=== PATIENT | male | born 1955 | race Caucasian/White ===

== ENCOUNTER → 2019-03-27 | Outpatient (CLI) | payer OTHER ==
[~2019-03-27] MED LIST: CONTRAST GIVEN. MC PRN; IOHEXOL 300 MG/ML 100ML VIAL. IV ONE
[2019-03-27 09:15] LABS: CREATININE 0.8 mg/dL (0.7-1.3); GFR 98.3
--- NOTE | 2019-03-27 09:59 | RAD ---
EXAM: CT Chest with IV contrast CLINICAL HISTORY: COPD. COMPARISON: Chest radiograph 06/05/2008 TECHNIQUE: CT of the chest following the administration of intravenous contrast. Axial, coronal and sagittal reformatted images were generated. ---PQRS compliance statement - One or more of the following individualized dose reduction techniques were utilized for this study: 1. Automated exposure control 2. Adjustment of the mA and/or kV according to patient size 3. Use of iterative reconstruction technique--- FINDINGS: CHEST: Heart is not enlarged. No pericardial effusion. Coronary artery calcifications are seen. Visualized portion of the thyroid is grossly unremarkable. A few prominent mediastinal and hilar lymph nodes are seen, not enlarged by size criteria. No axillary lymphadenopathy. No pleural effusion or pneumothorax. Bilateral emphysematous changes are seen. A 5 mm middle lobe lung nodule (series 2 image 35) is seen. Subpleural linear reticular opacities in the medial right lower lobe likely scarring/atelectasis. Visualized Upper abdomen: Hyperenhancing focus within the right hepatic lobe, nonspecific possibly hemangioma, measuring 1.4 cm. Lipoma is seen within a segment of small bowel. Bones: Old/healed right rib fractures are seen. Mild wedging deformity of several midlower thoracic vertebral bodies, likely age-indeterminate compression fractures versus physiologic wedging. IMPRESSION: 1. 5 mm middle lobe lung nodule is seen. Recommend follow-up CT in one year 2. Bilateral emphysematous changes are seen. No thoracic lymphadenopathy. 3. Hyperenhancing 1.4 cm lesion within the right hepatic lobe, nonspecific and may represent a hemangioma. However primary hepatic lesion or metastasis is not entirely excluded and therefore comparison to prior imaging if available or further evaluation with MRI in a high risk patient is recommended as this may not be seen by ultrasound given location. Electronically signed by: Jez Villanueva MD (03/27/2019 9:56 AM) [id number]
== END | disposition home or self-care (01) ==
LOC: CT 08:13
PROVIDERS: ATTEND Family Medicine
DX: J43.9 Emphysema, unspecified (principal); R91.1 Solitary pulmonary nodule; R91.8 Other nonspecific abnormal finding of lung field; I25.10 Atherosclerotic heart disease of native coronary artery without angina pectoris; K76.89 Other specified diseases of liver; M43.8X4 Other specified deforming dorsopathies, thoracic region
CPT/HCPCS: 36415; 71260; 82565; 84520; Q9967

== ENCOUNTER → 2020-05-01 | Outpatient (CLI) | payer OTHER ==
--- NOTE | 2020-05-01 08:59 | RAD ---
CT CHEST W/CONTRAST Indication: Lung nodule Technique: Postcontrast CT imaging was performed of the chest, multiplanar reconstruction images submitted. One or more of the following individualized dose reduction techniques were utilized for this examination: 1. Automated exposure control 2. Adjustment of the mA and/or kV according to patient size 3. Use of iterative reconstruction technique. Comparison: March 27, 2019 Findings: 5 mm right middle lobe nodule image 35 series 2 is unchanged. There is moderate emphysema with upper zone predominance. There is no new pleural or pericardial fluid, pneumothorax, or infiltrate. The major airways are overall patent. Thoracic aortic caliber is within normal limits, scattered mild plaque. Small focus of hyperenhancement of the superior liver image 48 series 2 about 7 mm is stable to somewhat less apparent, may be early filling hemangioma. There are some subcentimeter mediastinal nodes, largest about 7 mm in subcarinal region overall stable. There are also some subcentimeter right hilar nodes, no significantly enlarged nodes identified. There is again multilevel compression deformity of inferior thoracic vertebral bodies overall similar in appearance. There is multilevel degenerative change associated with the costovertebral articulations. There may be hepatic steatosis. IMPRESSION: 1. Small right middle lobe nodule is unchanged, no new suspicious pulmonary nodularity. If there are increased risk factors for neoplasm such as significant smoking history, continued surveillance such as with lung screening may be clinically indicated. 2. There is again emphysema. 3. There is again multilevel compression deformity of inferior thoracic vertebral bodies. Electronically signed by: Benjamin Meneses MD (05/01/2020 8:56 AM) [id number]
== END ==
LOC: CT 07:03
PROVIDERS: ATTEND Family Medicine
DX: R91.1 Solitary pulmonary nodule (principal); J43.9 Emphysema, unspecified; G95.29 Other cord compression; M43.8X4 Other specified deforming dorsopathies, thoracic region
CPT/HCPCS: 71260; Q9967

== ENCOUNTER → 2020-12-09 | Outpatient (CLI) | payer OTHER ==
[~2020-12-09] MED LIST changes: -CONTRAST GIVEN. MC PRN; +FEXO180T81 PO; +FLUT16SP NS; +FLUT1DIS3 IH; -IOHEXOL 300 MG/ML 100ML VIAL. IV ONE; +IPRA0.2S5 NEB; +ISOS30TA68 PO; +LOSA-73 PO; +METF-658 PO; +SIMV40TA18 PO; +VENTOLIN HFA18 GM INH
--- NOTE | 2020-12-10 11:09 | RAD ---
EXAM: Lower extremity arterial Doppler sonogram with ankle-brachial indices (SHAAN). HISTORY: Leg cramps TECHNIQUE: Doppler sonographic evaluation of the lower extremities was performed and pressure reading s were assessed. FINDINGS: Right brachial pressure: 143 mmHg Left brachial pressure: 133 mmHg Right ankle pressure (dorsalis pedis): 168 mmHg Right SHAAN (dorsalis pedis): 1.2 Left ankle pressure (dorsalis pedis): 184 mmHg Left SHAAN (dorsalis pedis): 1.4 Right ankle pressure (posterior tibial): 153 mmHg Right SHAAN (posterior tibial): 1.1 Left ankle pressure (posterior tibial): 173 mmHg Left SHAAN (posterior tibial): 1.3 IMPRESSION: Normal bilateral ABIs. Electronically signed by: Nydia Honeycutt MD (12/10/2020 11:06 AM) [id number]
== END ==
LOC: US 10:36
PROVIDERS: ATTEND Family Medicine
DX: G47.62 Sleep related leg cramps (principal); M79.604 Pain in right leg; M79.605 Pain in left leg
CPT/HCPCS: 93922

== ENCOUNTER → 2020-12-14 | Outpatient (CLI) | payer OTHER | LOC: LAB 13:06 | PROVIDERS: ATTEND Internal Medicine Cardiovascular Disease | DX: R06.00 Dyspnea, unspecified (principal); I20.0 Unstable angina; Z20.822 Contact with and (suspected) exposure to COVID-19 | CPT/HCPCS: U0003 ==

== ENCOUNTER 2020-12-17 08:41 | Outpatient (CLI) | payer OTHER ==
[~2020-12-17] VITALS: Ht 177.8 cm; Wt 107.5 kg
[2020-12-17] VITALS (11 sets, daily range): BP systolic 134–180; BP diastolic 72–83
[2020-12-17 09:34] LABS: CALCIUM 8.9 mg/dL (8.5-10.1); CREATININE 0.6 mg/dL (0.7-1.3); GFR 136.5; POTASSIUM 4.1 mmol/L (3.5-5.1)
[2020-12-17 09:39] LABS: HEMATOCRIT 38.1 % (39.0-53.0); HEMOGLOBIN 12.6 g/dL (13.0-17.5); RED BLOOD COUNT 4.35 x10^6/uL (4.30-5.70); RED CELL DISTRIBUTION WIDTH 14.3 % (11.5-14.5); WHITE BLOOD COUNT 4.7 x10^3/uL (4.0-11.0)
[2020-12-17 09:50] LABS: PROTHROMBIN TIME PATIENT 12.5 SEC (11.7-14.0)
[2020-12-17] MEDS ORDERED: IPRA0.2S5 NEB (09:53)
[2020-12-17] MEDS ORDERED: FLUT1DIS3 IH (09:53)
[2020-12-17] MEDS ORDERED: METF-658 PO (10:03)
[2020-12-17] MEDS ORDERED: SIMV40TA18 PO (10:03)
[2020-12-17] MEDS ORDERED: FEXO180T81 PO (10:03)
[2020-12-17] MEDS ORDERED: ISOS30TA68 PO (10:03)
[2020-12-17] MEDS ORDERED: LOSA-73 PO (10:03)
[2020-12-17] MEDS ORDERED: FLUT16SP NS (10:03)
[2020-12-17] MEDS ORDERED: VENTOLIN HFA18 GM INH (10:03)
[2020-12-17] MEDS ORDERED: LIDOCAINE 1% Multi-Dose 20 ML VIAL. ONE (10:22)
[2020-12-17] MEDS ORDERED: fentaNYL PF VIAL 100 MCG/2 ML VIAL ONE (10:24)
[2020-12-17] MEDS ORDERED: MIDAZOLAM HCL/PF 2 MG/2 ML VIAL. ONE (10:24)
[2020-12-17] MEDS ORDERED: VERAPAMIL 5 MG/2 ML VIAL. ONE (10:24)
[2020-12-17] MEDS ORDERED: HEPARIN for IV BOLUS 10,000 UNIT/10 ML VIAL. ONE (10:25)
[2020-12-17] MEDS ORDERED: NITROGLYCERIN 200 MCG/2 ML SYRINGE FOR CATH/VASC LAB. ONE (10:25)
[2020-12-17] MEDS ORDERED: LIDOCAINE 1% Multi-Dose 20 ML VIAL. INJ ONE (11:00)
[2020-12-17] MEDS ORDERED: fentaNYL PF VIAL 100 MCG/2 ML VIAL IV ONE (11:00)
[2020-12-17] MEDS ORDERED: IV NORMAL SALINE 500ML BAG 500 ML IV ONE (11:00)
[2020-12-17] MEDS ORDERED: IODIXANOL 320 MG/ML 100 ML VIAL. IART ONE (11:00)
[2020-12-17] MEDS ORDERED: NITROGLYCERIN 200 MCG/2 ML SYRINGE FOR CATH/VASC LAB. IART ONE (11:00)
[2020-12-17] MEDS ORDERED: HEPARIN for IV BOLUS 10,000 UNIT/10 ML VIAL. IART ONE (11:00)
[2020-12-17] MEDS ORDERED: MIDAZOLAM HCL/PF 2 MG/2 ML VIAL. IV ONE (11:00)
[2020-12-17] MEDS ORDERED: VERAPAMIL 5 MG/2 ML VIAL. IART ONE (11:00)
--- NOTE | 2020-12-17 12:16 | CARD ---
MR#: [id number] Date of Study: 12/17/2020 Ordering Physician: LAWANDA MCKENNA, Referring Physician: LAWANDA MCKENNA, Tech: Tory Cordova [facility] APPROVED REPORT EXAM: Two-dimensional and M-mode echocardiogram with Doppler and color Doppler. Other Information Quality : Fair INDICATION Unstable Angina, 51 Year Smoking History 2D DIMENSIONS RVDd1.8 (2.9-3.5cm)Left Atrium(2D)3.7 (1.6-4.0cm) IVSd0.9 (0.7-1.1cm)Aortic Root(2D)3.3 (2.0-3.7cm) LVDd4.9 (3.9-5.9cm)LVOT Diameter2.2 (1.8-2.4cm) PWd1.0 (0.7-1.1cm)LVDs4.2 (2.5-4.0cm) FS (%) 25.0 %SV37.1 ml LVEF(%)55.0 (>50%) Aortic Valve AoV Peak Binh.145.4cm/sAoV VTI29.2cm AO Peak GR.8.5mmHgLVOT Peak Binh.112.9cm/s LVOT VTI 21.38cmAO Mean GR.5mmHg RICHI (VMAX)2.94rl0XPO (VTI)2.69cm2 Mitral Valve MV E Efrfdpks16.8cm/sMV DECEL [id number] MV A Ovmeyngz08.0cm/sMV TEZ91aq E/A Ratio1.2MVA (PHT)4.01cm2 TDI E/Lateral E'11.6E/Medial E'11.3 Pulmonary Vein S1 Dqegxqhq09.7cm/sD2 Jgdhefhl34.9cm/s LEFT VENTRICLE The left ventricle is normal size. There is normal left ventricular wall thickness. The left ventricu lar systolic function is normal. The Ejection Fraction is 55%. There is normal LV segmental wall danuta on. RIGHT VENTRICLE The right ventricle is normal size. The right ventricular systolic function is normal. ATRIA The left atrium size is normal. The right atrium size is normal. The interatrial septum is intact wit h no evidence for an atrial septal defect or patent foramen ovale as noted on 2-D or Doppler imaging. AORTIC VALVE The aortic valve is calcified but opens well. Doppler and Color Flow revealed no significant aortic r egurgitation. There is no significant aortic valvular stenosis. MITRAL VALVE The mitral valve is calcified but opens well. There is no evidence of mitral valve prolapse. There is no mitral valve stenosis. Doppler and Color-flow revealed trace to mild mitral regurgitation. TRICUSPID VALVE The tricuspid valve is normal in structure and function. Doppler and Color Flow revealed no tricuspid valve regurgitation noted. There is no tricuspid valve stenosis. PULMONIC VALVE The pulmonic valve is not well visualized. Doppler and Color Flow revealed no pulmonic valvular regur gitation. There is no pulmonic valvular stenosis. GREAT VESSELS The aortic root is normal in size. The ascending aorta is not well seen. The IVC is normal in size an d collapses >50% with inspiration. PERICARDIAL EFFUSION There is no evidence of significant pericardial effusion. Critical Notification Critical Value: No <Conclusion> The left ventricular systolic function is normal. The Ejection Fraction is 55%. There is normal LV segmental wall motion. Trace to mild mitral regurgitation. There is no evidence of significant pericardial effusion. Signed by : Vj Horowitz, Electronically Approved : 12/17/2020 12:16:18
--- NOTE | 2020-12-17 13:24 | CARD ---
MR#: [id number] Date of Study: 12/17/2020 Ordering Physician: LAWANDA CORDERO, Referring Physician: LAWANDA CORDERO, Tech: Amber Wallis APPROVED REPORT Technologist: Amber Wallis Nurse: Katherine Person R.N. Procedure(s) performed: fl time: 3.6 mins dose: 44 gycm2 contrast: 43 ml moderate sedation: 31 mins LHC, Coronary angiography HISTORY : The patient is a 64 year-old male with a history of . INDICATION The indication(s) include : unstable angina , dyspnea. [facility] Clinical Frailty Scale [facility] Clinical Frailty Scale: Moderately Frail Heart Failure Heart Failure: Yes If Yes, Newly Diagnosed: Yes If Yes, HF Type: Diastolic If Yes, NYHA Class: Class II CASE TECHNIQUE IV conscious sedation was used throughout procedure with appropriate monitoring and was performed in the presence of a registered nurse who was an independent trained observer other than the physician p erforming the procedure. During this case, Fluoroscopy and low osmolar contrast were used for imaging . Specimen(s) Removed: N/A Estimated Blood loss: 10 cc's. PROCEDURE NARRATIVE Clinical information: 64-year-old man who presented to the office in the setting of exertional angina and dyspnea. Due to high pretest probability a coronary angiogram was planned. Informed consent: Written informed consent was obtained from the patient after adequate discussion of the risks and don efits of the procedure. Procedure details: ACCESS: The right wrist was prepped and draped in usual sterile fashion. Under 1% lidocaine local anesthesia a 6 Hebrew Terumo sheath was placed in the right radial artery via the Seldinger technique. DIAGNOSTIC ANGIOGRAPHY: Right and left coronary arteries were engaged with a 6 Hebrew TIG catheter. Diagnostic angiography i n multiple views were obtained. Next, a 6 Hebrew pigtail catheter was placed in the left ventricle a nd a LVEDP was measured. A pullback was performed after left ventriculography. All catheters were e xchanged over J-tip guidewire. FINDINGS: ======= Aorta: 110/80 LVEDP: 15 mmHg Left ventriculogram: Deferred due to known normal ejection fraction without any significant valvular abnormalities. No evidence of pulmonary hypertension Coronary angiography: LM: Large caliber vessel with normal angiographic appearance LAD: Large caliber vessel with mild luminal irregularities of up to 20%. D1: Small caliber vessel with normal angiographic appearance. LCX: Moderate caliber non-dominant vessel with mild luminal irregularities OM1: Moderate caliber vessel with normal angiographic appearance RCA: Large caliber dominant vessel with normal angiographic appearance. RPDA: Moderate caliber vessel with normal angiographic appearance. CLOSURE: At case completion the right radial sheath was removed and a Terumo radial band was applied with 11 m L of air. Hemostasis was achieved. COMPLICATIONS: No acute complications noted Conclusion 1. Normal left-sided filling pressures 2. No significant coronary artery disease Recommendations 1. Referral to pulmonary service for evaluation of severe COPD. Signed by : Lawanda Cordero, Electronically Approved : 12/17/2020 13:24:13
--- NOTE | 2020-12-17 13:43 | NUR ---
Instructions provided on site care, radial access, moderate sedation. Nurse emphasized importance of not using right arm, keeping arm board on for 24 hrs, monitoring for bleeding. Patient and his significant other verbalized understanding. Note provided for work release x5 days-- no lifting >10 lbs. Patient lifts heavy manhole covers for living. States he will return to work on Monday. Dr. Martines's phone number provided-- Dr. Cordero would like patient to followup w/ knitting machine operator automatic. TR band removed at 1310. Redressed. Arm board reapplied. No bleeding noted at time. Patient taken to vehicle via wheelchair. All belongings w/ patient at time of d/c. SO driving home.
== END 2020-12-17 13:48 | disposition home or self-care (01) ==
LOC: CCL 08:41
PROVIDERS: ATTEND Internal Medicine Cardiovascular Disease
DX: I20.0 Unstable angina (principal); R06.00 Dyspnea, unspecified; I34.0 Nonrheumatic mitral (valve) insufficiency; E78.00 Pure hypercholesterolemia, unspecified; I10 Essential (primary) hypertension; J44.9 Chronic obstructive pulmonary disease, unspecified; E11.9 Type 2 diabetes mellitus without complications; Z87.891 Personal history of nicotine dependence; Z79.899 Other long term (current) drug therapy; Z98.890 Other specified postprocedural states
CPT/HCPCS: 36415; 80048; 85027; 85610; 93306; 93458; 99152; 99153; C1769; C1894; J1644; J2250; J3010; J3490; J7040; Q9967

== ENCOUNTER → 2021-11-04 | Outpatient (CLI) | payer OTHER ==
[2020-12-17 13:15] VITALS: BP 160/72
--- NOTE | 2021-11-04 11:34 | RAD ---
EXAM: Chest CT without intravenous contrast. HISTORY: Pulmonary nodule. TECHNIQUE: Computed tomographic images of the chest were obtained without contrast. Multiplanar refor matting was performed. *One or more of the following individualized dose reduction techniques were utilized for this examina tion: 1. Automated exposure control. 2. Adjustment of the mA and/or kV according to patient size. 3. Use of iterative reconstruction technique. COMPARISON: 05/01/2020 and 03/27/2019. FINDINGS: The heart is normal in size. There are has been slight interval increase in anterior perica rdial thickening or trace pericardial fluid. There is no lymphadenopathy. There is no pneumothorax or pleural effusion. There is emphysema. There are tiny metallic foreign bodies within the superior medial right pectorali s muscle, likely due to prior penetrating injury. There is a 1.2 cm nodule with irregular margins within the lateral left lower lobe (series 8, image 1 72). There is a 5 mm nodule with adjacent 1 mm satellite nodule within the right upper lobe (series 8 , image 152). This is slightly increased compared to the prior exam. There has been slight interval i ncrease in 3 mm nodules along the right major and minor pleural fissures, likely due to fissural lymp h nodes. There is a 6 mm nodule within the right middle lobe (series 8, image 179). This slightly inc reased compared to the prior exam. There is a 4 mm pleural-based nodule at the right lung base, possi trevor due to subsegmental atelectasis. There is no acute finding involving the upper abdomen. There are degenerative changes throughout the spine. There is no acute or suspicious osseous finding. There are multiple chronic appearing thoracic and lumbar compression fractures. IMPRESSION: 1. Suspicious 1.2 cm nodule within the left lower lobe, new compared to the prior exam. This is withi n normal limits in size for assessment with PET/CT. 2. Slight interval increase in multiple additional pulmonary nodules measuring up to 6 mm, described in detail above. These remain indeterminant. 3. Emphysema. 4. Slight interval increase in anterior pericardial thickening or trace pericardial fluid. Electronically signed by: Patti Esposito MD (11/04/2021 11:31 AM) [id number]
== END ==
LOC: CT 10:47
PROVIDERS: ATTEND Internal Medicine Pulmonary Disease
DX: R91.8 Other nonspecific abnormal finding of lung field (principal); J43.9 Emphysema, unspecified; M47.819 Spondylosis without myelopathy or radiculopathy, site unspecified
CPT/HCPCS: 71250

== ENCOUNTER → 2021-11-19 | Outpatient (CLI) | payer OTHER ==
[2020-12-17 13:15] VITALS: BP 160/72
--- NOTE | 2021-11-19 13:54 | RAD ---
EXAM: Dual modality PET-CT Scan DATE: 11/19/2021 RADIOPHARMACEUTICAL: 13 mCi F-18 fluorodeoxyglucose (FDG) IV. CLINICAL HISTORY: Pulmonary nodule. COMPARISON: CT dated 10/08/2021. TECHNIQUE: Approximately 45 minutes after tracer administration, routine, attenuation-corrected Posit roby Emission Tomography (PET) images were obtained from the level of the base of the skull through th e level of the mid thighs. Tomographic reconstructions are reviewed in coronal, transaxial and sagitt al planes. Non-contrast CT imaging was performed for attenuation correction and localization purpose s only. These images do not constitute a diagnostic-quality CT examination and were not used to diag nose disease independently of the PET images. The blood glucose level was 151 mg/dL at the time of FDG administration. *One or more of the following individualized dose reduction techniques were utilized for this examina tion: 1. Automated exposure control. 2. Adjustment of the mA and/or kV according to patient size. 3. Use of iterative reconstruction technique. FINDINGS: There is minimal radiotracer activity within SUV of 1.0 associated with a 1.2 cm nodule the left lower lobe. There is no additional abnormal radiotracer activity to suggest malignancy. The CT portion of the exam redemonstrates a previously described 1.2 cm nodule with irregular margins within the lateral left lower lobe. There are stable 5 mm and 4 mm nodule within the right middle lo be. The additional nodules demonstrated on the prior exam are not well seen due to differences in sli ce thickness and respiratory motion on the current exam. There is emphysema. There is no pneumothorax or pleural effusion. There is no infiltrate. The heart is normal in size. The aorta is normal in caliber. There is a bovine aortic arch branching pattern, a normal variant. No pathologically enlarged lymph node is seen. There is no suspicious hepatic lesion. The gallbladder, pancreas, spleen, adrenal glands and kidneys are unremarkable. There is no appendicitis. There is no bowel obstruction or abnormal bowel wall thic kening. There is distal colonic diverticulosis. There is no diverticulitis. There is anterior urinary bladder wall thickening, likely due to underdistention, cystitis or chronic outlet obstruction. The aorta is normal in caliber. The visualized portions of the brain are unremarkable. There is no neck lymphadenopathy. There are de generative changes throughout the spine and involving both shoulders and hips. Is no acute osseous fi nding or suspicious osseous lesion. There are incidental pars defects at L5-S1. There are multiple mi ld chronic thoracic compression fractures. IMPRESSION: 1. Minimal radiotracer activity within SUV of 1.0 associated with a 1.2 cm the left lower lobe nodule . This degree of tracer activity favors benignity. However, the morphology of the nodule remains susp icious. The possibility of a low-grade neoplasm is not excluded. Short-term follow-up with a chest CT in 3 months is recommended. 2. Few additional tiny pulmonary nodules measuring up to 5 mm. These are too small to characterize wi th PET. Attention the time of follow-up is recommended. 3. Emphysema. 4. Please refer to the above report for additional findings regarding the non-PET portion of the exam . Electronically signed by: Patti Esposito MD (11/19/2021 1:51 PM) [id number]
== END ==
LOC: PETSC 10:54
PROVIDERS: ATTEND Internal Medicine Pulmonary Disease
DX: R91.1 Solitary pulmonary nodule (principal); J43.9 Emphysema, unspecified; M48.54XA Collapsed vertebra, not elsewhere classified, thoracic region, initial encounter for fracture
CPT/HCPCS: 78815; A9552

== ENCOUNTER → 2022-02-11 | Outpatient (CLI) | payer OTHER ==
[2020-12-17 13:15] VITALS: BP 160/72
--- NOTE | 2022-02-11 13:13 | RAD ---
EXAMINATION: CT Chest Without IV contrast. INDICATION:66 years, Male, pulmonary nodule. Follow-up. COMPARISON: PET/CT dated 11/19/2021 and multiple priors. TECHNIQUE: Spiral CT was obtained from the jugular notch through the posterior costophrenic recess. S agittal and coronal reformats were obtained. Exposure: One or more of the following individualized dose reduction techniques were utilized for thi s examination: 1. Automated exposure control 2. Adjustment of the mA and/or kV according to patient size 3. Use of iterative reconstruction technique. FINDINGS: LUNGS/PLEURA: Central airways are patent. Mild to moderate centrilobular pulmonary emphysema. No foca l consolidation, pleural effusion or pneumothorax. New 3.8 mm solid pulmonary nodule in the left lower lobe (series 8 image 189). Decreasing size of solid pulmonary nodule in the left lower lobe anteriorly measures 8.6 mm, previous ly 11 mm (series 8 image 174). Stable 5 mm solid pulmonary nodule in the right upper lobe (series 8 image 154). Stable 5 mm solid pulmonary nodule in the right middle lobe (series 8 image 181). Stable 2 mm solid pulmonary nodule in the right lower lobe (series 8 image 231). MEDIASTINUM: No pathologic mediastinal or hilar adenopathy. The thoracic aorta and pulmonary arteries are normal in caliber. The heart is normal in size. Trace amount of pericardial effusion. No detecta ble calcified coronary atherosclerosis. The visualized thyroid and the esophagus are unremarkable. AXILLA/SOFT TISSUE: No supraclavicular or axillary adenopathy. Regional soft tissues are within vandana l limits. UPPER ABDOMEN: The visualized upper abdomen appears unremarkable, within limitation of noncontrast ex am.. BONES: No evidence of acute fractures or aggressive osseous lesions. Multilevel degenerative changes in the spine. IMPRESSION: In comparing with CT chest dated 11/04/2021 1. New 3.8 mm solid pulmonary nodule in the left lower lobe. 2. Decreasing size of solid pulmonary nodule in the left lower lobe 11 mm to 8.6 mm. 3. Stable remaining solid nodules in the right lung. Electronically signed by: Don Zigeler MD (02/11/2022 1:10 PM) [facility]
== END ==
LOC: CT 09:44
PROVIDERS: ATTEND Internal Medicine Critical Care Medicine
DX: R91.8 Other nonspecific abnormal finding of lung field (principal); J43.2 Centrilobular emphysema; M47.819 Spondylosis without myelopathy or radiculopathy, site unspecified
CPT/HCPCS: 71250